=== PATIENT | male | born 1985 | race African-American/Black ===

== ENCOUNTER 2016-09-28 13:09 | Emergency (ER) | payer MEDICAID ==
[~2016-09-28] VITALS: Ht 182.9 cm; Wt 110.0 kg
[~2016-09-28 13:09] MED LIST: ERYT.5%O RIGHT EYE
[2016-09-28 13:10] VITALS: BP 184/103; PULSE 90; RESP 20; TEMP 98.4; O2SAT 98
--- NOTE | 2016-09-28 13:36 | PD ---
HPI Chief Complaint: Complaint Time Seen by Provider: 13:33 Travel History International Travel<30 days: No Contact w/Intl Traveler<30days: No Traveled to known affect area: No History of Present Illness HPI 30-year-old male presents to the emergency Department with complaint of dysuria since Monday night. He thought it would go away and it hasn't. He denies hematuria, frequency, urgency. Says the pain after urinating continuous for about a minute after finishing. He does engage in unprotected sexual intercourse with his . He denies penile discharge, pain. Denies testicular pain, swelling. Denies fever, chills, nausea, vomiting, abdominal pain, pelvic pain. Denies low back pain. No known allergies. Has not taken any medications or tried any treatments to relieve the symptoms. Patient's blood pressure elevated in the ER. Denies history of hypertension. He denies chest pain, shortness of breath, abdominal pain, nausea, vomiting, headache, blurred vision, diaphoresis. Does not have an established primary care provider at this time. No other modifying factors or associated signs and symptoms. [facility] Past Medical History Medical History: Denies Significant Hx Diminished Hearing: No Social History Alcohol Use: No Tobacco Use: No Substance Use: No Allergies-Medications (Allergen,Severity, Reaction): Coded Allergies: No Known Allergies (Verified , 09/28/16) Reported Meds & Prescriptions Reported Meds & Active Scripts Active No Active Prescriptions or Reported Medications Review of Systems Except as stated in HPI: all other systems reviewed are Neg Physical Exam Narrative GENERAL: Well-nourished, well-developed male patient, in no acute distress; afebrile, nontoxic-appearing SKIN: Warm and dry. HEAD: Atraumatic. Normocephalic. EYES: Pupils equal and round. ENT: Mucosa pink and moist. NECK: Trachea midline. No lymphadenopathy. CARDIOVASCULAR: Regular rate. RESPIRATORY: No accessory muscle use. GASTROINTESTINAL: Abdomen soft and nondisteneded; with tenderness at the umbilicus on palpation. Hepatic and splenic margins not palpable. Bowel sounds are active 4 quadrants. GENITOURINARY: Circumcised. Testes descended bilaterally without evidence of rotation. No lesions or erythema. White, milky urethral discharge. MUSCULOSKELETAL: No obvious deformities. No clubbing. No cyanosis. No edema. BACK: No CVA tenderness. NEUROLOGICAL: Awake and alert. Oriented 3. No obvious cranial nerve deficits. Motor grossly within normal limits. Normal speech. Moves all extremities. 5/5 strength to all extremities. PSYCHIATRIC: Appropriate mood and affect; insight and judgment normal. Data Data Last Documented VS Vital Signs Date Time Temp Pulse Resp B/P Pulse Ox O2 Delivery O2 Flow Rate FiO2 09/28/16 13:47 155/106 09/28/16 13:10 98.4 90 20 98 Room Air Orders Gc And Chlamydia Pcr (09/28/16 13:25) Urinalysis - C+S If Indicated (09/28/16 13:25) Azithromycin Powd Pack (Zithromax Powd P (09/28/16 14:00) Ceftriaxone Inj (Rocephin Inj) (09/28/16 14:00) Lidocaine 1% Inj (50 Ml) (Xylocaine 1% I (09/28/16 14:00) Urine Culture (09/28/16 13:22) Labs Laboratory Tests Test 09/28/16 13:22 Urine Color COLORLESS Urine Turbidity CLEAR Urine pH 7.0 Urine Specific [place] 1.005 Urine Protein NEG mg/dL Urine Glucose (UA) NEG mg/dL Urine Ketones NEG mg/dL Urine Occult Blood SMALL Urine Nitrite NEG Urine Bilirubin NEG Urine Urobilinogen LESS THAN 2.0 MG/DL Urine Leukocyte Esterase LARGE Urine RBC 1 /hpf Urine WBC /hpf Urine WBC Clumps RARE Urine Squamous Epithelial <1 /hpf Cells Microscopic Urinalysis Comment CULTURE INDICATED MDM Medical Decision Making Medical Screen Exam Complete: Yes Emergency Medical Condition: Yes Medical Record Reviewed: Yes Differential Diagnosis Chlamydia, gonorrhea, urethritis, UTI Narrative Course 30-year-old male with dysuria. White, milky urethral discharge noted on physical exam. Patient will be empirically treated with Rocephin and azithromycin. Patient's blood pressure elevated in the ER 155/106. Patient denies history of hypertension. He is asymptomatic. Instructed patient to follow-up with primary care provider in regards to elevated blood pressure in the ER. Urinalysis ordered. Chlamydia and gonorrhea ordered and pending. 1422: Urinalysis was signs of infection. Urine culture pending. Azithromycin and Rocephin administered in the ER. Keflex prescribed for home. Patient verbalizes understanding and agreement with treatment plan. Patient is medically cleared and stable for discharge. Discussed reasons to return to the emergency department. Instructed patient to follow up with primary care provider. Patient agrees with treatment plan. The patients vital signs are stable and the patient is stable for outpatient follow-up and treatment. Patient discharged home, stable and in no acute distress. Diagnosis Primary Impression: Urethritis Additional Impression: Urinary tract infection Qualified Code: N39.0 - Urinary tract infection without hematuria, site unspecified Referrals: Primary Care Physician Patient Instructions: Chlamydia (ED), Dysuria (ED), General Instructions, Gonorrhea (ED), Nonspecific Urethritis in Men (ED), Sexually Transmitted Diseases (ED) Departure Forms: Tests/Procedures, Work Release Enter return to work date: Sep 29, 2016 Additional Instructions: Avoid sexual activity for 10-14 days; make sure sex partners are evaluated and treated prior to engaging in sexual intercourse Inform all sexual partners within the past 3-6 months that they need to be evaluated and treated Use condoms every time you have sex Follow-up with primary care provider Return to the emergency department immediately with worsening of symptoms Med/Other Pt SpecificInfo: Prescription(s) given Scripts Cephalexin (Keflex)500 Mg Qal188 Mg PO Q12H 7 Days Ref 0 Prov:Rosario Candelario 09/28/16 Disposition: 01 DISCHARGE HOME Condition: Stable Rosario Candelario Sep 28, 2016 13:36
[2016-09-28 13:47] VITALS: BP 155/106
[2016-09-28] MEDS ORDERED: AZITHROMYCIN PWD FOR SUSP 1 GM PACKET PO ONE (14:00)
[2016-09-28] MEDS ORDERED: cefTRIAXone 250 MG VIAL IM ONE (14:00)
[2016-09-28] MEDS ORDERED: LIDOCAINE HCL 1% 50 ML VIAL IM ONE (14:00)
[2016-09-28 14:18] LABS: BLOOD, URINE SMALL (NEG); COMMENT (UR) CULTURE INDICATED; CULTURE IF INDICATED CULTURE INDICATED; GLUCOSE,URINE NEG (NEG); KETONE, URINE NEG (NEG); NITRITE,URINE NEG (NEG); SQUAMOUS EPITHELIAL CELL URINE <1 /hpf (0-5); URINE COLOR COLORLESS (YELLW/STRAW)
[2016-09-28] MEDS ORDERED: CEPH-460 PO (14:23)
[2016-09-28 16:55] LABS: CHLAMYDIA PCR NOT DETECTED (NOT DETECT); NEISSERIA PCR DETECTED (NOT DETECT)
== END 2016-09-28 14:38 | disposition home or self-care (01) ==
LOC: NEPB 13:09
DX: N34.2 Other urethritis (principal); N39.0 Urinary tract infection, site not specified; R03.0 Elevated blood-pressure reading, without diagnosis of hypertension
CPT/HCPCS: 81001; 87086; 87491; 87591; 96372; 99283; J0696

== ENCOUNTER 2017-02-14 21:08 | Emergency (ER) | payer MEDICAID ==
[~2017-02-14 21:08] MED LIST changes: +CEPH-460 PO; -ERYT.5%O RIGHT EYE
[2017-02-14 21:10] VITALS: BP 177/98; PULSE 96; RESP 18; TEMP 98.2; O2SAT 98
[2017-02-14] MEDS ORDERED: KETOROLAC TROMETHAMINE 60 MG/2 ML (IM) VIAL IM ONE (22:15)
--- NOTE | 2017-02-14 22:15 | PD ---
HPI Chief Complaint: Injury Time Seen by Provider: 22:04 Travel History International Travel<30 days: No Contact w/Intl Traveler<30days: No Traveled to known affect area: No History of Present Illness HPI 31-year-old male presents for evaluation of right great toe pain. Symptoms started last night. The pain is a throbbing pain localized to the right first MTP joint, worse when standing, somewhat improved with [id number] NSAID use. He has similar pain a few months ago which lasted a few days and then spontaneously resolved. He denies any trauma. No fevers or chills. No history of gout in the past. He has no other complaints. PFSH Past Medical History Diminished Hearing: No Social History Alcohol Use: No Tobacco Use: No Substance Use: No Allergies-Medications (Allergen,Severity, Reaction): Coded Allergies: No Known Allergies (Verified , 09/28/16) Reported Meds & Prescriptions Reported Meds & Active Scripts Active Diclofenac Sodium DR (Diclofenac Sodium) 75 Mg Tabdr 75 Mg PO BID 10 Days Keflex (Cephalexin) 500 Mg Cap 500 Mg PO Q12H 7 Days Review of Systems Except as stated in HPI: all other systems reviewed are Neg Physical Exam Narrative GENERAL: Well-nourished male in no acute distress SKIN: Warm and dry. HEAD: Atraumatic. Normocephalic. EYES: Pupils equal and round. No scleral icterus. No injection or drainage. ENT: No nasal bleeding or discharge. Mucous membranes pink and moist. NECK: Trachea midline. No JVD. CARDIOVASCULAR: Regular rate and rhythm. No murmur appreciated. RESPIRATORY: No accessory muscle use. Clear to auscultation. Breath sounds equal bilaterally. GASTROINTESTINAL: Abdomen soft, non-tender, nondistended. Hepatic and splenic margins not palpable. MUSCULOSKELETAL: Tender to palpation right first MTP joint. No joint effusion, pain with range of motion. NEUROLOGICAL: Awake and alert. No obvious cranial nerve deficits. Motor grossly within normal limits. Normal speech. Data Data Last Documented VS Vital Signs Date Time Temp Pulse Resp B/P Pulse Ox O2 Delivery O2 Flow Rate FiO2 02/14/17 21:10 98.2 96 18 177/98 98 Orders Toe (Min 2vws) (02/14/17 ) Ketorolac Inj (Toradol Inj) (02/14/17 22:15) [facility] Medical Decision Making Medical Screen Exam Complete: Yes Emergency Medical Condition: Yes Medical Record Reviewed: Yes Interpretation(s) CONCLUSION: 1. Nonspecific soft tissue swelling of the great toe. 2. Nonacute appearing oblique cleft plantar aspect of the distal phalanx, nonspecific but probably developmental. 3. Bipartite tibial sesamoid. Differential Diagnosis Podagra, septic arthritis, sprain, tendinitis Narrative Course 31-year-old male with right great toe pain since yesterday. Examination reveals the pain is localized to the right first MTP joint, certainly suspicious for podagra. He had a similar pain a few months ago which spontaneously resolved. I see that this patient was also here earlier this year and treated for gonococcal urethritis. He has no urethritis symptoms and there is no evidence of a septic joint on examination. X-ray imaging reveals nonspecific soft tissue swelling, no acute fracture. He is stable for discharge. Discussed signs and symptoms that would warrant return to the emergency room. Diagnosis Primary Impression: Toe pain, right Additional Instructions: Medication as needed. Take with meals. Follow-up with primary care physician as discussed, likely outpatient uric acid level testing. Return for any acutely new or worsening symptoms. Med/Other Pt SpecificInfo: Prescription(s) given Scripts Diclofenac Sodium DR 75 Mg Tabdr75 Mg PO BID 10 Days Ref 0 Prov:Danny Villa MD 02/14/17 Disposition: 01 DISCHARGE HOME Condition: Stable Tristen Ewing Feb 14, 2017 22:15
--- NOTE | 2017-02-14 22:53 | RADRPT ---
EXAM DATE/TIME: 02/14/2017 22:31 [place] COMPARISON: No previous studies available for comparison. INDICATIONS : Right toe pain and swelling for 2 days. No known injury. MEDICAL HISTORY : None. SURGICAL HISTORY : None. ENCOUNTER: Initial ACUITY: 2 days PAIN SCORE: 8/10 LOCATION: Right toe. FINDINGS: The soft tissues of the great toe appear swollen. There is an oblique chronic appearing cleft in the plantar aspect of the mid to distal shaft of the bone, best seen on the lateral. There is a bipartite tibial sesamoid. CONCLUSION: 1. Nonspecific soft tissue swelling of the great toe. 2. Nonacute appearing oblique cleft plantar aspect of the distal phalanx, nonspecific but probably de velopmental. 3. Bipartite tibial sesamoid. Al Dalton MD on February 14, 2017 at 22:49 Board Certified Radiologist. This report was verified electronically.
[2017-02-14] MEDS ORDERED: DICL75TA PO (23:07)
== END 2017-02-14 23:44 | disposition home or self-care (01) ==
LOC: NEPK 21:08
DX: M79.674 Pain in right toe(s) (principal)
CPT/HCPCS: 73660; 96372; 99284; J1885

== ENCOUNTER 2017-03-29 12:33 | Emergency (ER) | payer MEDICAID ==
[~2017-03-29] VITALS: Ht 182.9 cm; Wt 105.0 kg
[~2017-03-29 12:33] MED LIST changes: +DICL75TA PO
[2017-03-29 12:35] VITALS: BP 150/71; PULSE 93; RESP 20; TEMP 98.7; O2SAT 98
--- NOTE | 2017-03-29 12:38 | PD ---
Physical Exam Time Seen by Provider: 12:38 Narrative 31 y/o male here with 5 days of right upper back pain. He does not recall a mechanism of injury. Vital signs reviewed. Seen at triage desk. Awaiting bed placement. Data Data Last Documented VS Vital Signs Date Time Temp Pulse Resp B/P (MAP) Pulse Ox O2 Delivery O2 Flow Rate FiO2 03/29/17 12:35 98.7 93 20 150/71 (97) 98 Room Air [facility] Medical Record Reviewed: Yes Supervised Visit with BREANA: No Tristen Ewing Mar 29, 2017 12:38
--- NOTE | 2017-03-29 15:05 | PD ---
HPI Chief Complaint: Pain: Acute or Chronic Time Seen by Provider: 15:00 Travel History International Travel<30 days: No Contact w/Intl Traveler<30days: No Traveled to known affect area: No History of Present Illness HPI 31-year-old Afro-Malagasy male presents the emergency Department with worsening right upper lumbar/lower thoracic muscle spasm/pain since Monday. Patient states no specific injury but, pain just started on Monday has gotten progressively worse over the past several days. Patient has not been taking any medications as he does not like to take medications. 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 Patient states he came in today because his pain was so bad he had difficulty sleeping and hurts to take a deep breath on the right side. She denies fever, chills, or other symptoms. He has no known drug allergies. Pain is currently in a out of 10. Worse with movement PFSH Past Medical History Diminished Hearing: No Social History Alcohol Use: No Tobacco Use: No Substance Use: No Allergies-Medications (Allergen,Severity, Reaction): Coded Allergies: No Known Allergies (Verified , 03/29/17) Reported Meds & Prescriptions Reported Meds & Active Scripts Active Diclofenac Sodium DR (Diclofenac Sodium) 75 Mg Tabdr 75 Mg PO BID 10 Days Keflex (Cephalexin) 500 Mg Cap 500 Mg PO Q12H 7 Days Review of Systems Except as stated in HPI: all other systems reviewed are Neg General / Constitutional: No: Fever Eyes: No: Visual changes HENT: No: Headaches Cardiovascular: No: Chest Pain or Discomfort Respiratory: No: Shortness of Breath Gastrointestinal: No: Abdominal Pain Genitourinary: No: Dysuria Musculoskeletal: Positive: Myalgias, Limited ROM, Pain (see history present illness) Skin: No Rash Neurologic: No: Weakness Psychiatric: No: Depression Endocrine: No: Polydipsia Hematologic/Lymphatic: No: Easy Bruising Physical Exam Narrative GENERAL: Patient appears in moderate distress. SKIN: Warm and dry. Normal color. Normal turgor. No rash. HEAD: Atraumatic. Normocephalic. EYES: Pupils equal and round. No scleral icterus. No injection or drainage. ENT: No nasal bleeding or discharge. Mucous membranes pink and moist. Pharynx is clear. Airway is patent. NECK: Trachea midline. Supple nontender. CARDIOVASCULAR: Regular rate and rhythm. RESPIRATORY: No accessory muscle use. Clear to auscultation. Breath sounds equal bilaterally. GASTROINTESTINAL: Abdomen soft, non-tender, nondistended. Hepatic and splenic margins not palpable. No flank tenderness. MUSCULOSKELETAL: Extremities without clubbing, cyanosis, or edema. No obvious deformities. Patient has obvious muscle spasm to the right middle back at the border between the lumbar and thoracic spine. Range of motion is diminished secondary to pain. No bony tenderness or other significant findings are noted. NEUROLOGICAL: Awake and alert. No obvious cranial nerve deficits. Motor grossly within normal limits. Five out of 5 muscle strength in the arms and legs. Normal speech. PSYCHIATRIC: Appropriate mood and affect; insight and judgment normal. Data Data Last Documented VS Vital Signs Date Time Temp Pulse Resp B/P (MAP) Pulse Ox O2 Delivery O2 Flow Rate FiO2 03/29/17 12:35 98.7 93 20 150/71 (97) 98 Room Air MDM Medical Decision Making Medical Screen Exam Complete: Yes Emergency Medical Condition: Yes Differential Diagnosis Right back pain. Right thoracic strain. Muscle spasm. Narrative Course Patient is felt to be medically stable at time of exam. Radiographic imaging or medical workup was not felt warranted based on the patient's history and physical. Patient is given Toradol 60 mg IM. Patient continued on ibuprofen 800 mg 3 times daily with food #30. Patient also given Flexeril 10 mg 3 times a day #15. Patient also given tramadol 50 mg one every 6 hours when necessary pain #12. Patient is to use heat, ice, gentle stretching as discussed. Work note for the next 2 days is given. Diagnosis Primary Impression: Acute right-sided thoracic back pain Additional Impression: Muscle spasm Referrals: Primary Care Physician Patient Instructions: Lower Back Exercises (ED), Muscle Spasm (ED), Thoracic Back Strain (ED), Upper Back Exercises (GEN) Additional Instructions: Radiographic imaging or medical workup was not felt warranted based on the patient's history and physical. Patient is given Toradol 60 mg IM. Patient continued on ibuprofen 800 mg 3 times daily with food #30. Patient also given Flexeril 10 mg 3 times a day #15. Patient also given tramadol 50 mg one every 6 hours when necessary pain #12. Patient is to use heat, ice, gentle stretching as discussed. Work note for the next 2 days is given. Med/Other Pt SpecificInfo: Prescription(s) given Disposition: 01 DISCHARGE HOME Condition: Stable Demetrius Gilbert Mar 29, 2017 15:05
[2017-03-29] MEDS ORDERED: TRAM50TA PO (15:12)
[2017-03-29] MEDS ORDERED: CYCL1TAB29 PO (15:12)
[2017-03-29] MEDS ORDERED: IBUP800T23 PO (15:12)
[2017-03-29] MEDS ORDERED: KETOROLAC TROMETHAMINE 60 MG/2 ML (IM) VIAL IM ONE (15:15)
== END 2017-03-29 15:29 | disposition home or self-care (01) ==
LOC: NEPK 12:33
DX: M54.6 Pain in thoracic spine (principal); M62.830 Muscle spasm of back; Z79.899 Other long term (current) drug therapy
CPT/HCPCS: 96372; 99284; J1885